=== PATIENT | female | born 1960 | race Caucasian/White ===

== ENCOUNTER 2017-07-11 07:56 | Emergency (ER) | payer OTHER ==
[2017-07-11 09:23] VITALS: BP 146/85
[2017-07-11] MEDS ORDERED: Aspirin Low Dose CHEW TAB* 81 MG PO ONE (10:04)
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
== END 2017-07-11 10:45 | disposition short-term general hospital (02) ==
LOC: UCEAST 07:56
DX: R07.89 Other chest pain (principal); R42 Dizziness and giddiness; R03.0 Elevated blood-pressure reading, without diagnosis of hypertension; R09.81 Nasal congestion; R00.1 Bradycardia, unspecified; Z88.1 Allergy status to other antibiotic agents
CPT/HCPCS: 93005; 99213; A9270-GY; G0463

== ENCOUNTER 2017-07-11 11:06 | Emergency (ER) | payer OTHER ==
[2017-07-11] MEDS ORDERED: Ketorolac INJ* 30 MG/ML 1 ML VIAL IV PUSH ONE (11:12)
[2017-07-11 11:30] LABS: ABS Basophils 0 10^3/ul (0-0.2); ABS Eosinophils 0.2 10^3/ul (0-0.6); ABS Lymphocytes 1.3 10^3/ul (1.0-4.8); ABS Monocytes 0.4 10^3/ul (0-0.8); ABS Neutrophils 2.9 10^3/ul (1.5-7.7); ABS Nucleated RBC 0 10^3/ul; Eosinophil % 3.9 % (0-6); Hematocrit 42 % (35-47); Hemoglobin 14.1 g/dl (12.0-16.0); Lymphocyte % 27.1 % (25-47); Mean Corpuscular HGB Conc 34 g/dl (31-36); Mean Corpuscular Hemoglobin 30 pg (27-31); Mean Corpuscular Volume 89 fL (80-97); Mean Platelet Volume 9 um3 (7.4-10.4); Nucleated Red Blood Cells % 0; Platelet Count 272 10^3/ul (150-450); Red Blood Count 4.68 10^6/ul (4.0-5.4); Red Cell Distribution Width 13 % (10.5-15); White Blood Count 4.8 10^3/ul (3.5-10.8)
[2017-07-11 11:46] LABS: EGFR Non-African American 73.4 (>60)
--- NOTE | 2017-07-11 12:01 | RAD ---
HISTORY: Chest pain COMPARISONS: May 18, 2006 VIEWS: 1: frontal portable view of the chest at 11:35 AM FINDINGS: LINES AND TUBES: None. CARDIOMEDIASTINAL SILHOUETTE: The cardiomediastinal silhouette is normal for portable technique. PLEURA: The costophrenic angles are sharp. No pleural abnormalities are noted. LUNG PARENCHYMA: The lungs are clear. ABDOMEN: The upper abdomen is clear. There is no subphrenic gas. BONES AND SOFT TISSUES: No bone or soft tissue abnormalities are noted. IMPRESSION: NO ACTIVE CARDIOPULMONARY DISEASE.
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
[2017-07-11 13:39] VITALS: BP 116/67
[2017-07-11 13:58] LABS: Urine Appearance Clear; Urine Blood Negative (Negative); Urine Color Straw; Urine Ketones Negative (Negative); Urine Protein Negative (Negative); Urine Specific Gravity 1.008 (1.010-1.030); Urine Urobilinogen Negative (Negative)
== END 2017-07-11 13:38 | disposition home or self-care (01) ==
LOC: ED 11:06
DX: R07.89 Other chest pain (principal); E03.9 Hypothyroidism, unspecified; Z88.1 Allergy status to other antibiotic agents; Z79.899 Other long term (current) drug therapy
CPT/HCPCS: 36415; 71045; 80053; 81003; 82550; 83735; 83880; 84443; 84484; 85025; 93005; 99282; J1885

== ENCOUNTER 2017-09-22 14:42 | Emergency (ER) | payer OTHER ==
[2017-09-22 15:12] VITALS: BP 123/76
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
== END 2017-09-22 16:04 | disposition home or self-care (01) ==
LOC: UCEAST 14:42
DX: R51 Headache (principal); E03.9 Hypothyroidism, unspecified; Z88.1 Allergy status to other antibiotic agents
CPT/HCPCS: 99212; G0463

== ENCOUNTER 2017-09-22 16:27 | Emergency (ER) | payer OTHER ==
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
[2017-09-22] MEDS ORDERED: NS 0.9% 1000 ML* 1,000 ML IV ONE (17:53)
[2017-09-22] MEDS ORDERED: Metoclopramide IV* 5 MG/ML 2 ML VIAL IV ONE (17:53)
[2017-09-22] MEDS ORDERED: diPHENhydraMINE IV* 50 MG/ML 1 ml VIAL (BENADRYL) IV ONE (17:53)
[2017-09-22] MEDS ORDERED: Ketorolac INJ* 30 MG/ML 1 ML VIAL IV PUSH ONE (17:53)
[2017-09-22 19:45] VITALS: BP 123/74
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
== END 2017-09-22 19:45 | disposition home or self-care (01) ==
LOC: ED 16:27
DX: G43.919 Migraine, unspecified, intractable, without status migrainosus (principal); Z88.3 Allergy status to other anti-infective agents
CPT/HCPCS: 36415; 70450; 85652; 86140; 96361; 96374; 96375; 99284; J1200; J1885; J2765

== ENCOUNTER 2018-09-28 08:07 | Emergency (ER) | payer OTHER ==
[2018-09-28 09:13] VITALS: BP 146/77
--- NOTE | 2018-09-28 09:20 | UC ---
General HPI - HPI Summary HPI Summary: Went for a run around [place] on 09/[place] - tripped on stones and landed on her left side. Took a hard fall, had gravel in her hands. Does not think she had LOC. Has had exquisite tenderness over her left side side since then. Sometimes it hurts to breath. Has dyphonia. Has not had a BM since 09/25. No blood in her urine. No back pain. Pain is mostly below her ribs. Has a hard time moving or repositioning herself. Meds: reviewed - History of Current Complaint Chief Complaint: UCGeneralIllness Stated Complaint: MUSCLE SPASMS IN SIDE Time Seen by Provider: 09/28/18 09:10 Hx Last Menstrual Period: 09/19/17 Pain Intensity: 10 - Allergy/Home Medications Allergies/Adverse Reactions: Allergies Allergy/AdvReac Type Severity Reaction Status Date / Time erythromycin base Allergy Unknown Verified 09/28/18 08:25 Reaction Details PMH/Surg Hx/FS Hx/Imm Hx Previously Healthy: Yes Endocrine History: Hypothyroidism - Surgical History Surgical History: Yes Surgery Procedure, Year, and Place: , MASS REMOVAL 02/09 - Family History Known Family History: Negative: Cardiac Disease, Hypertension - Social History Alcohol Use: Weekly Alcohol Amount: none since Substance Use Type: None Smoking Status (MU): Never Smoked Tobacco Review of Systems All Other Systems Reviewed And Are Negative: Yes Genitourinary: Positive: Negative Physical Exam Triage Information Reviewed: Yes Appearance: Well-Appearing, Other: - chronic dypshonia Vital Signs: Initial Vital Signs Temp 98.4 F 09/28/18 08:20 Pulse 57 09/28/18 08:20 Resp 18 09/28/18 08:20 BP 146/77 09/28/18 08:20 Pulse Ox 100 09/28/18 08:20 Abdominal Exam: Other - Positive bowel sounds, guarding over left upper and left mid quadrant due to tenderness. No significant rib pintpoint tenderness Diagnostics - Radiology Abdominal/pelvis CT Radiology Interpretation Completed By: Radiologist Summary of Radiographic Findings: Diverticulosis. No acute pathology in abdomen or pelvis Course/Dx - Course Course Of Treatment: This is a 57 yr old who fell while running on 09/25 Ct scan to evaluate spleen - no acute pathology Muscle strain Start Naproxen 500 mg 2x/day x 2 weeks - take with food Start Flexeril as needed for muscle spasm If symptoms persist or worsen, recommend follow up with PCP or return to urgent care - Diagnoses Provider Diagnosis: Muscle strain Discharge - Sign-Out/Discharge Documenting (check all that apply): Patient Departure All imaging exams completed and their final reports reviewed: Yes - Discharge Plan Condition: Fair Disposition: HOME Prescriptions: Cyclobenzaprine TAB* [Flexeril 10 MG TAB*] 10 mg PO TID PRN #30 tab PRN Reason: Spasms Naproxen [Naproxen 500 mg tab] 500 mg PO BID #28 tablet. Patient Education Materials: Muscle Strain (ED) Referrals: Aaron Alfred MD [Primary Care Provider] - Additional Instructions: Start Naproxen 500 mg 2x/day x 2 weeks - take with food Start Flexeril as needed for muscle spasm If symptoms persist or worsen, recommend follow up with PCP or return to urgent care - Billing Disposition and Condition Condition: FAIR Disposition: Home
== END 2018-09-28 10:12 | disposition home or self-care (01) ==
LOC: UCEAST 08:07
DX: S39.011A Strain of muscle, fascia and tendon of abdomen, initial encounter (principal); R19.4 Change in bowel habit; Z88.1 Allergy status to other antibiotic agents; W01.0XXA Fall on same level from slipping, tripping and stumbling without subsequent striking against object, initial encounter; Y92.9 Unspecified place or not applicable
CPT/HCPCS: 74176; 81003; 99211; G0463